=== PATIENT | male | born 1950 | race Caucasian/White ===

== ENCOUNTER 2016-08-03 10:25 | Observation (INO) | payer OTHER ==
[2016-08-02 08:58] VITALS: BP 116/78
[~2016-08-03] VITALS: Ht 188 cm; Wt 108.2 kg
[~2016-08-03 10:25] MED LIST: BACITRACIN 50,000 UNIT ONE; BUPIVACAINE/PF-EPI 0.25% 1:200K ONE; GABA600T2 PO; NEFA150T PO; THROMBIN 5,000 UNIT VIAL TP ONE; TRAM50TA2 PO
[2016-08-03] MEDS ORDERED: LIDOCAINE 1%, 2ML ONE (11:13)
[2016-08-03] MEDS ORDERED: LACTATED RINGERS 1,000 ML IV SCH (11:20)
[2016-08-03] MEDS ORDERED: LIDOCAINE 1%, 2ML SQ PRN (11:30)
[2016-08-03] MEDS ORDERED: FENTANYL PF 250 MCG/5ML ONE (11:56)
[2016-08-03] MEDS ORDERED: MIDAZOLAM 1 MG/ML, 2ML ONE (11:57)
[2016-08-03] MEDS ORDERED: ONDANSETRON 2MG/ML, 2ML IVPush PRN ×2 (14:00→16:30)
[2016-08-03] MEDS ORDERED: hydrALAzine 20 MG/ML, 1ML IV PRN (14:00)
[2016-08-03] MEDS ORDERED: HYDROmorphone 1 MG/ML, 1ML IV PRN (14:00)
[2016-08-03] MEDS ORDERED: METOCLOPRAMIDE 5 MG/ML, 2ML IV PRN (14:00)
[2016-08-03] MEDS ORDERED: ACETAMINOPHEN 325 MG TABLET PO PRN (14:00)
[2016-08-03] MEDS ORDERED: PROMETHAZINE 25 MG/ML, 1ML IV PRN (14:00)
[2016-08-03] MEDS ORDERED: MEPERIDINE/PF 25MG/0.5ML IVPush PRN (14:00)
[2016-08-03] MEDS ORDERED: OXYcodone 5 MG/5 ML ORAL.SOL UDC PO PRN (14:00)
[2016-08-03] MEDS ORDERED: LABETALOL 5MG/ML, 20ML IV PRN (14:00)
[2016-08-03] MEDS ORDERED: ROCURONIUM 10 MG/ML ONE (14:10)
[2016-08-03] MEDS ORDERED: PROPOFOL 10 MG/ML, 50ML ONE (14:10)
[2016-08-03] MEDS ORDERED: CEFAZOLIN 1,000 MG ONE (14:10)
[2016-08-03] MEDS ORDERED: PROPOFOL 10 MG/ML, 20ML ONE (14:10)
[2016-08-03] MEDS ORDERED: SUCCINYLCHOLINE 20 MG/ML, 10ML ONE (14:10)
[2016-08-03] MEDS ORDERED: MEPERIDINE/PF 100 MG/ML IM PRN (16:30)
[2016-08-03] MEDS ORDERED: PHARMACY MAY ADJ FOR RENAL FX MC PRN (16:30)
[2016-08-03] MEDS ORDERED: TIZANIDINE 4MG TABLET PO PRN (16:30)
[2016-08-03] MEDS ORDERED: PROMETHAZINE 25 MG/ML, 1ML IM PRN (16:30)
[2016-08-03] MEDS ORDERED: HYDROmorphone 2 MG/ML, 1ML IVPush PRN (16:30)
[2016-08-03] MEDS ORDERED: BISACODYL 10 MG SUPP PR PRN (16:30)
[2016-08-03] MEDS ORDERED: OXYcodone/APAP 5/325MG TABLET PO PRN (16:30)
[2016-08-03] MEDS ORDERED: MAGNESIUM HYDROXIDE 8%, 30ML UDC PO PRN (16:30)
[2016-08-03] MEDS ORDERED: ACETAMINOPHEN 325 MG TABLET ONE (16:38)
[2016-08-03] MEDS ORDERED: FENTANYL PF 100 MCG/2ML ONE (16:38)
[2016-08-03] MEDS ORDERED: OXYcodone 5 MG/5 ML ORAL.SOL UDC ONE (16:38)
[2016-08-03] MEDS: FENTANYL PF 100 MCG/2ML IV PRN ×2 (16:40→16:52)
[2016-08-03] MEDS: HYDROcodone/APAP 10/325 MG TABLET PO PRN (18:46)
[2016-08-03 19:06] VITALS: BP 139/80
[2016-08-03] MEDS ORDERED: GABAPENTIN 400 MG CAPSULE PO SCH (21:00)
[2016-08-03] MEDS: SODIUM CHLORIDE FLUSH 10ML SYR IVF SCH (21:13)
[2016-08-03] MEDS: NS + 20MEQ KCL 1,000 ML IV SCH (22:55)
[2016-08-03] MEDS: CEFAZOLIN PMX 1GM/50ML 50 ML IVPB SCH (22:55)
[2016-08-04 00:17] VITALS: BP 155/87
[2016-08-04] MEDS: HYDROcodone/APAP 10/325 MG TABLET PO PRN ×2 (00:46→06:40)
[2016-08-04 04:41] VITALS: BP 120/79
[2016-08-04] MEDS: CEFAZOLIN PMX 1GM/50ML 50 ML IVPB SCH (06:40)
[2016-08-04 08:00] VITALS: BP 132/74
[2016-08-04] MEDS ORDERED: SENNA/DOCUSATE TABLET PO SCH (09:00)
[2016-08-04] MEDS ORDERED: TIZA4TAB PO (09:00)
[2016-08-04] MEDS ORDERED: HYDR-3307 PO (09:00)
[2016-08-04] MEDS: NS + 20MEQ KCL 1,000 ML IV SCH ×2 (09:04→11:53)
[2016-08-04] MEDS: SODIUM CHLORIDE FLUSH 10ML SYR IVF SCH (09:38)
[2016-08-04 11:38] VITALS: BP 130/78
== END 2016-08-04 13:30 | disposition home or self-care (01) ==
LOC: OUT 10:25 → ORIP 16:14 → 4NOR 18:18 → DCLOUNGE 08-04 13:12
PROVIDERS: ADMIT Neurological Surgery; ATTEND Neurological Surgery
DX: M47.22 Other spondylosis with radiculopathy, cervical region (principal); M50.321 Other cervical disc degeneration at C4-C5 level
CPT/HCPCS: 20930; 22551; 22552; 22853; 36415; 72040; 86850; 86900; 95938; 95941; 96365; 96375; 97116; 97161; C1713; C1776; G0378; J0330; J0690; J2250; J2704; J3010; J3480; J3490; J7120